=== PATIENT | female | born 1980 | race African-American/Black ===

== ENCOUNTER 2017-04-12 19:51 | Emergency (ER) | payer BC ==
--- NOTE | 2017-04-12 20:39 | ER Document Report ---
ED Blood Pressure Problem - General Chief Complaint: High Blood Pressure Stated Complaint: CLINIC REFERRED DUE TO BLOOD PRESSURE CONCERNS Time Seen by Provider: 04/12/17 20:38 Notes: 36-year-old female Afro-Honduran patient with history of hypertension but untreated. Followed by a monologist only. Went to an urgent care because she was having some spasms of her left eyelid. They did a blood pressure on her blood pressure was significantly elevated. Sent here. States that she has had increased shortness of breath with ambulation. Some orthopnea. Noticed increased swelling of her legs as well. TRAVEL OUTSIDE OF THE [place] IN LAST 30 DAYS: No - HPI Patient complains to provider of: High blood pressure Onset/Duration: Gradual - Related Data Allergies/Adverse Reactions: No Known Allergies Allergy (Verified 07/05/14 12:33) Past Medical History - General Information source: Patient - Social History Smoking Status: Never Smoker Frequency of alcohol use: None Drug Abuse: None Lives with: Alone Family History: Reviewed & Not Pertinent - Past Medical History Cardiac Medical History: Reports: Hx Hypertension Endocrine Medical History: Reports: Hx Diabetes Mellitus Type 2, Hx Hypothyroidism - Had her thyroid removed in May Psychiatric Medical History: Reports: Hx Depression Past Surgical History: Reports: Hx Section - x3, Hx Orthopedic Surgery , Hx Thyroid Surgery - thyroidectomy - Immunizations Hx Diphtheria, Pertussis, Tetanus Vaccination: Yes - unknown Review of Systems - Review of Systems Constitutional: No symptoms reported EENT: Other - Eyelids have been twitching Cardiovascular: Orthopnea, Dyspnea, Lightheaded, Edema Respiratory: Short of breath. denies: Cough, Hurts to breathe Gastrointestinal: No symptoms reported Genitourinary: No symptoms reported Female Genitourinary: No symptoms reported Musculoskeletal: No symptoms reported Skin: No symptoms reported Hematologic/Lymphatic: No symptoms reported Neurological/Psychological: No symptoms reported Physical Exam - Vital signs Vitals: Temp Pulse Resp BP Pulse Ox 98.4 F 82 20 156/108 H 99 04/12/17 20:12 04/12/17 20:12 04/12/17 20:12 04/12/17 20:12 04/12/17 20:12 Interpretation: Normal - General General appearance: Appears well, Alert Notes: Well-appearing, well-nourished, obese -Honduran female in no acute distress. - HEENT Head: Normocephalic, Atraumatic Eyes: Normal Pupils: PERRL Notes: No JVD - Respiratory Respiratory status: No respiratory distress Chest status: Nontender Breath sounds: Normal Chest palpation: Normal - Cardiovascular Rhythm: Regular Heart sounds: Normal auscultation Murmur: No - Abdominal Inspection: Normal Distension: No distension Bowel sounds: Normal Tenderness: Nontender Organomegaly: No organomegaly - Back Back: Normal, Nontender - Extremities General upper extremity: Normal inspection, Nontender, Normal color, Normal ROM , Normal temperature General lower extremity: Normal inspection, Nontender, Edema, Normal color, Normal ROM, Normal temperature, Normal weight bearing, Other - 2 Plus pitting edema noted bilateral lower extremities. No: Yanelis's sign - Neurological Neuro grossly intact: Yes Cognition: Normal Orientation: AAOx4 [place] Coma Scale Eye Opening: Spontaneous Bertrand Coma Scale Verbal: Oriented [place] Coma Scale Motor: Obeys Commands [place] Coma Scale Total: 15 Speech: Normal Motor strength normal: LUE, RUE, LLE, RLE Sensory: Normal - Psychological Associated symptoms: Normal affect, Normal mood - Skin Skin Temperature: Warm Skin Moisture: Dry Skin Color: Normal Course - Re-evaluation Re-evalutation: 04/12/17 20:52 Patient extremely hypertensive with some peripheral edema. Will get apprehensive workup at this time. 04/12/17 20:54 [employer] voice dictation system was used in the transcribing of this medical document. There may be contextual errors in the financial accounting analyst which are not actual representations of the patient's history of present illness, physical exam or medical treatment and decision making plans. 04/13/17 00:01 Labs are fairly unremarkable. Does have slightly elevated BNP. We will start her on some hypertensive medication. Will recommend close follow-up as an outpatient. Patient instructed to return immediately if she develops any worsening symptoms or concerns. 04/13/17 00:02 Laboratory 04/12/17 04/12/17 04/12/17 22:15 22:15 22:15 WBC 9.7 RBC 4.73 Hgb 13.4 Hct 39.4 MCV 83 MCH 28.3 MCHC 33.9 RDW 14.2 H Plt Count 244 Seg Neutrophils % 52.9 Lymphocytes % 34.1 Monocytes % 6.8 Eosinophils % 5.2 Basophils % 1.0 Absolute Neutrophils 5.1 Absolute Lymphocytes 3.3 Absolute Monocytes 0.7 Absolute Eosinophils 0.5 Absolute Basophils 0.1 Sodium 142.3 Potassium 4.2 Chloride 109 H Carbon Dioxide 22 Anion Gap 11 BUN 16 Creatinine 1.21 Est GFR ( Amer) > 60 Est GFR (Non-Af Amer) 50 L Glucose 82 Calcium 8.9 Total Bilirubin 0.3 Direct Bilirubin 0.2 Neonat Total Bilirubin Not Reportable Neonat Direct Bilirubin Not Reportable Neonat Indirect Bili Not Reportable AST 18 ALT 29 Alkaline Phosphatase 65 Troponin I < 0.012 NT-Pro-B Natriuret Pep 410 H Total Protein 6.2 L Albumin 3.7 Urine Color Urine Appearance Urine pH Ur Specific [place] Urine Protein Urine Glucose (UA) Urine Ketones Urine Blood Urine Nitrite Urine Bilirubin Urine Urobilinogen Ur Leukocyte Esterase Urine WBC (Auto) Urine RBC (Auto) Urine Bacteria (Auto) Squamous Epi Cells Auto Urine Mucus (Auto) Urine Ascorbic Acid 04/12/17 22:15 WBC RBC Hgb Hct MCV MCH MCHC RDW Plt Count Seg Neutrophils % Lymphocytes % Monocytes % Eosinophils % Basophils % Absolute Neutrophils Absolute Lymphocytes Absolute Monocytes Absolute Eosinophils Absolute Basophils Sodium Potassium Chloride Carbon Dioxide Anion Gap BUN Creatinine Est GFR ( Amer) Est GFR (Non-Af Amer) Glucose Calcium Total Bilirubin Direct Bilirubin Neonat Total Bilirubin Neonat Direct Bilirubin Neonat Indirect Bili AST ALT Alkaline Phosphatase Troponin I NT-Pro-B Natriuret Pep Total Protein Albumin Urine Color YELLOW Urine Appearance SLIGHTLY-CLOUDY Urine pH 6.0 Ur Specific [place] 1.014 Urine Protein NEGATIVE Urine Glucose (UA) NEGATIVE Urine Ketones NEGATIVE Urine Blood NEGATIVE Urine Nitrite NEGATIVE Urine Bilirubin NEGATIVE Urine Urobilinogen NEGATIVE Ur Leukocyte Esterase SMALL H Urine WBC (Auto) 3 Urine RBC (Auto) 1 Urine Bacteria (Auto) TRACE Squamous Epi Cells Auto 5 Urine Mucus (Auto) RARE Urine Ascorbic Acid NEGATIVE Chest X-Ray 04/12/17 20:48 IMPRESSION: NO SIGNIFICANT RADIOGRAPHIC FINDING IN THE CHEST. - Vital Signs Vital signs: Temp Pulse Resp BP Pulse Ox 98.4 F 82 25 H 166/107 H 96 04/12/17 20:12 04/12/17 20:12 04/12/17 23:00 04/12/17 21:02 04/12/17 23:00 - Laboratory Result Diagrams: 04/12/17 22:15 04/12/17 22:15 Laboratory results interpreted by me: 04/12/17 04/12/17 04/12/17 22:15 22:15 22:15 RDW 14.2 H Chloride 109 H Est GFR (Non-Af Amer) 50 L NT-Pro-B Natriuret Pep 410 H Total Protein 6.2 L Ur Leukocyte Esterase 04/12/17 22:15 RDW Chloride Est GFR (Non-Af Amer) NT-Pro-B Natriuret Pep Total Protein Ur Leukocyte Esterase SMALL H - EKG Interpretation by Oh EKG shows normal: Sinus rhythm, [place], Intervals, QRS Complexes, ST-T Waves Discharge - Discharge Clinical Impression: Hypertension Qualifiers: Hypertension type: unspecified Qualified Code(s): I10 - Essential (primary) hypertension Disposition: HOME, SELF-CARE Instructions: Hydrochlorothiazide ([facility]), High Blood Pressure, Requiring Treatment ([facility]) Prescriptions: Hydrochlorothiazide 25 mg PO DAILY 30 Days #30 tablet
--- NOTE | 2017-04-12 21:37 | RADIOLOGY REPORT (SQ) ---
EXAM DESCRIPTION: CHEST PA/LAT COMPLETED DATE/TIME: 04/12/2017 9:27 pm REASON FOR STUDY: sob COMPARISON: 05/17/2013 EXAM PARAMETERS: NUMBER OF VIEWS: two views TECHNIQUE: Digital Frontal and Lateral radiographic views of the chest acquired. RADIATION DOSE: NA LIMITATIONS: none FINDINGS: LUNGS AND PLEURA: No opacities, masses or pneumothorax. No pleural effusion. MEDIASTINUM AND HILAR STRUCTURES: No masses or contour abnormalities. HEART AND VASCULAR STRUCTURES: Heart normal size. No evidence for failure. BONES: No acute findings. HARDWARE: None in the chest. OTHER: No other significant finding. IMPRESSION: NO SIGNIFICANT RADIOGRAPHIC FINDING IN THE CHEST. TECHNICAL DOCUMENTATION: JOB ID: [id number] [employer]- All Rights Reserved
[2017-04-12 22:29] LABS: ABSOLUTE BASOPHILS # (AUTO) 0.1 10^3/uL (0.0-0.2); ABSOLUTE EOSINOPHILS # (AUTO) 0.5 10^3/uL (0.0-0.6); ABSOLUTE LYMPHOCYTES (AUTO) 3.3 10^3/uL (0.5-4.7); ABSOLUTE MONOCYTES (AUTO) 0.7 10^3/uL (0.1-1.4); ABSOLUTE NEUT (AUTO) 5.1 10^3/uL (1.7-8.2); EOSINOPHILS % (AUTO) 5.2 % (0-6); HEMATOCRIT 39.4 % (36.0-47.0); HEMOGLOBIN 13.4 g/dL (12.0-15.5); HGB HCT DIFFERENCE 0.8; LYMPHOCYTES % (AUTO) 34.1 % (13-45); MEAN CORPUSCULAR HEMOGLOBIN 28.3 pg (27.0-33.4); MEAN CORPUSCULAR HGB CONC 33.9 g/dL (32.0-36.0); MEAN CORPUSCULAR VOLUME 83 fl (80-97); MONOCYTES % (AUTO) 6.8 % (3-13); RED BLOOD COUNT 4.73 10^6/uL (3.72-5.28); RED CELL DISTRIBUTION WIDTH 14.2 % (11.5-14.0); SEGMENTED NEUTROPHILS % (AUTO) 52.9 % (42-78); WHITE BLOOD COUNT 9.7 10^3/uL (4.0-10.5)
[2017-04-12 22:32] LABS: APPEARANCE,URINE SLIGHTLY-CLOUDY; BILIRUBIN,URINE NEGATIVE (NEGATIVE); GLUCOSE, URINE NEGATIVE (NEGATIVE); KETONES,URINE NEGATIVE (NEGATIVE); LEUKOCYTE ESTERASE,URINE SMALL (NEGATIVE); NITRITE,URINE NEGATIVE (NEGATIVE); PROTEIN,URINE NEGATIVE (NEGATIVE); URINE SPECIFIC GRAVITY 1.014; UROBILINOGEN,URINE NEGATIVE mg/dL (<2.0)
[2017-04-12 22:46] LABS: ALANINE AMINOTRANSFERASE 29 U/L (9-52); ALBUMIN 3.7 g/dL (3.5-5.0); ALKALINE PHOSPHATASE 65 U/L (38-126); ANION GAP 11 (5-19); ASPARTATE AMINO TRANSFERASE 18 U/L (14-36); BILIRUBIN,DIRECT 0.2 mg/dL (0.0-0.4); BILIRUBIN,TOTAL 0.3 mg/dL (0.2-1.3); BLOOD UREA NITROGEN 16 mg/dL (7-20); CALCIUM 8.9 mg/dL (8.4-10.2); CARBON DIOXIDE 22 mmol/L (22-30); CHLORIDE 109 mmol/L (98-107); CREATININE RESULT 1.21 mg/dL (0.52-1.25); GLUCOSE 82 mg/dL (75-110); POTASSIUM 4.2 mmol/L (3.6-5.0); SODIUM 142.3 mmol/L (137-145); TOTAL PROTEIN 6.2 g/dL (6.3-8.2)
[2017-04-12 23:02] LABS: TROPONIN I < 0.012 ng/mL
[2017-04-13] MEDS ORDERED: HYDROCHLOROTHIAZIDE 25 MG TABLET PO ONE (00:05)
[2017-04-13 00:26] VITALS: BP 166/100
--- NOTE | 2017-04-14 06:01 | EKG REPORT ---
SEVERITY:- NORMAL ECG - SINUS RHYTHM : Confirmed by: Dariela Kaur MD 14-Apr-2017 06:00:34
== END 2017-04-13 00:24 | disposition home or self-care (01) ==
LOC: ER 19:51
DX: I10 Essential (primary) hypertension (principal); E11.9 Type 2 diabetes mellitus without complications; E03.9 Hypothyroidism, unspecified; R60.9 Edema, unspecified
CPT/HCPCS: 36415; 71020; 80053; 81001; 83880; 84484; 85025; 87086; 93005; 93010; 99284

== ENCOUNTER → 2017-05-13 | Outpatient (CLI) | payer BC ==
--- NOTE | 2017-05-13 18:14 | XCELERA REPORT ---
[address] [address] Transthoracic Echocardiogram Report Name: SUNIL CORONADO V Age: 36 yrs Gender: Female : 1980 Patient Status: Outpatient Patient Location: Study Date: 05/13/2017 09:59 AM Height: 71 in Weight: 335 lb BSA: 2.6 m2 Procedure: A complete two-dimensional transthoracic echocardiogram was performed (2D, M-mode, spectral and color flow Doppler). The study was technically difficult with many images being suboptimal in quality. Reason For Study: HEART FAILURE Ordering Physician: JOCELYNN MIRAMONTES Performed By: Nicole Terrell Interpretation Summary The left ventricular ejection fraction is normal. There is borderline concentric left ventricular hypertrophy. The left ventricle is grossly normal size. Doppler measurements suggest normal left ventricular diastolic function Wall motion cannot be accurately commented on, but no definite regional wall motion abnormalities noted. The right ventricular systolic function is normal. The left atrium is borderline dilated. The right atrium is borderline dilated. There is a trace amount of mitral regurgitation There is no mitral valve stenosis. There is a trace or physiologic amount of tricuspid regurgitation Tricuspid regurgitation jet envelope not well defined to measure RV systolic pressure accurately. There is no pericardial effusion. MMode/2D Measurements & Calculations RVDd: 3.0 cm LVIDd: 5.2 cm FS: 40.1 % Ao root diam: 2.7 cm IVSd: 0.99 cm LVIDs: 3.1 cm EDV(Teich): 128.0 ml LVPWd: 0.99 cm ESV(Teich): 37.8 ml Ao root area: 5.7 cm2 EF(Teich): 70.5 % Doppler Measurements & Calculations MV E max patricia: MV dec slope: Ao V2 max: LV V1 max P.3 cm/sec 114.6 cm/sec 2.4 mmHg MV A max patricia: 393.0 cm/sec2 Ao max PG: LV V1 max: 33.3 cm/sec MV dec time: 5.3 mmHg 77.8 cm/sec MV E/A: 2.4 0.20 sec PA V2 max: TR max patricia: 61.1 cm/sec 207.2 cm/sec PA max PG: TR max P.6 mmHg 1.5 mmHg Left Ventricle The left ventricle is grossly normal size. There is borderline concentric left ventricular hypertrophy. The left ventricular ejection fraction is normal. Doppler measurements suggest normal left ventricular diastolic function. Wall motion cannot be accurately commented on, but no definite regional wall motion abnormalities noted. Right Ventricle The right ventricle is mildly dilated. There is normal right ventricular wall thickness. The right ventricular systolic function is normal. Atria The right atrium is borderline dilated. The left atrium is borderline dilated. Interarterial septum not well visualized and not well dopplered. Cannot comment on ASD/PFO presence. Mitral Valve The mitral valve is grossly normal. There is no mitral valve stenosis. There is a trace amount of mitral regurgitation. Aortic Valve The aortic valve opens well. There is no aortic valve stenosis. No aortic regurgitation is present. Tricuspid Valve The tricuspid valve is not well visualized secondary to technical limitations. There is no tricuspid stenosis. There is a trace or physiologic amount of tricuspid regurgitation. Tricuspid regurgitation jet envelope not well defined to measure RV systolic pressure accurately. Pulmonic Valve The pulmonic valve is not well visualized. Great Vessels The aortic root is not well visualized but is probably normal size. The inferior vena cava was not visualized. Effusions There is no pericardial effusion. : JOCELYNN MIRAMONTES Shyamal
== END ==
LOC: SP 09:46
PROVIDERS: ATTEND Internal Medicine
DX: I50.21 Acute systolic (congestive) heart failure (principal); D39.0 Neoplasm of uncertain behavior of uterus
CPT/HCPCS: 93306

== ENCOUNTER 2017-12-29 03:43 | Emergency (ER) | payer BC ==
--- NOTE | 2017-12-29 04:46 | ER Document Report ---
HPI - HPI Pain Level: 5 Context: Patient is a 37-year-old female who comes emergency department for chief complaint of urinary frequency, painful urination, and blood in her urine over the past day. She denies flank pain, nausea or vomiting, fever or chills. She has a little bit of crampy pain in her lower mid abdomen with urinating. Past medical history of hypothyroidism, hypertension, and she states that at one point her kidney functioning was elevated but this was rechecked and normalized. - REPRODUCTIVE LMP: 12-17-17 Reproductive: DENIES: : Past Medical History - General Information source: Patient - Social History Smoking Status: Never Smoker Frequency of alcohol use: None Drug Abuse: None Lives with: Family Family History: Reviewed & Not Pertinent - Past Medical History Cardiac Medical History: Reports: Hx Hypertension Endocrine Medical History: Reports: Hx Hypothyroidism - Status post thyroidectomy Renal/ Medical History: Denies: Hx Peritoneal Dialysis Psychiatric Medical History: Reports: Hx Depression Past Surgical History: Reports: Hx Section - x3, Hx Orthopedic Surgery , Hx Thyroid Surgery - thyroidectomy - Immunizations Hx Diphtheria, Pertussis, Tetanus Vaccination: Yes - unknown Vertical Provider Document - CONSTITUTIONAL General Appearance: WD/WN, No Apparent Distress, Obese - INFECTION CONTROL TRAVEL OUTSIDE OF THE [place] IN LAST 30 DAYS: No - HEENT HEENT: Atraumatic, Normal ENT Exam, Normocephalic - NECK Neck: Normal Inspection - RESPIRATORY Respiratory: Breath Sounds Normal, No Respiratory Distress - CARDIOVASCULAR Cardiovascular: Regular Rate, Regular Rhythm - GI/ABDOMEN Gastrointestinal: Abdomen Soft. negative: Abdomen Non-Tender - There is mild suprapubic tenderness, remaining abdomen is soft and benign, no guarding, no distention, no rebound tenderness - BACK Back: Normal Inspection - No CVA tenderness bilaterally - MUSCULOSKELETAL/EXTREMETIES Musculoskeletal/Extremeties: MAEW, FROM, Non-Tender - NEURO Level of Consciousness: Awake, Alert, Appropriate - DERM Integumentary: Warm, Dry, No Rash Course - Re-evaluation Re-evalutation: Urine shows large amount of leukocyte esterase and white blood cells, shows hematuria. White blood cell clumps are present. Yeast are present. Some squamous epithelials but many more white blood cells. Patient has suprapubic tenderness and dysuria, urinary frequency. No CVA tenderness, no fever, no nausea or vomiting. Patient is very well-appearing. Suspect cystitis with potential developing pyelonephritis. Discussed with patient. Decision was made to proceed with treatment instead of performing additional workup, given Rocephin here, Diflucan here, patient will be given Keflex and Diflucan for home. Discussed follow-up and return precautions, patient states understanding and agreement. - Vital Signs Vital signs: Temp Pulse Resp BP Pulse Ox 98.2 F 79 18 167/90 H 100 12/29/17 04:05 12/29/17 04:05 12/29/17 04:05 12/29/17 04:05 12/29/17 04:05 Discharge - Discharge Clinical Impression: Dysuria Urinary tract infection Qualifiers: Urinary tract infection type: site unspecified Hematuria presence: with hematuria Qualified Code(s): N39.0 - Urinary tract infection, site not specified Condition: Stable Disposition: HOME, SELF-CARE Additional Instructions: Your evaluation is consistent with cystitis (a bladder infection). Take antibiotics as prescribed, after completion of antibiotics take the Diflucan to avoid yeast infection. Take Pyridium if needed for symptoms. Return if you worsen including increased pain, vomiting, fever of 100.4 or greater, or any other concerning or worsening symptoms. Prescriptions: Cephalexin Monohydrate [Keflex 500 mg Capsule] 500 mg PO QID #28 capsule Fluconazole [Diflucan] 150 mg PO ONCE PRN #1 tablet PRN Reason: Phenazopyridine HCl [Pyridium 100 Mg Tablet] 200 mg PO TID PRN #12 tablet PRN Reason: Referrals: JOCELYNN MIRAMONTES MD [Primary Care Provider] - Follow up as needed
[2017-12-29 04:51] LABS: APPEARANCE,URINE TURBID; BILIRUBIN,URINE NEGATIVE (NEGATIVE); COLOR,URINE YELLOW; GLUCOSE, URINE NEGATIVE (NEGATIVE); KETONES,URINE NEGATIVE (NEGATIVE); LEUKOCYTE ESTERASE,URINE LARGE (NEGATIVE); NITRITE,URINE NEGATIVE (NEGATIVE); PROTEIN,URINE >=500 mg/dL (NEGATIVE); URINE SPECIFIC GRAVITY 1.023
[2017-12-29] MEDS ORDERED: LIDOCAINE 1% INJ-PF (10 MG/ML) 30 ML SDV INJ ONE (04:54)
[2017-12-29] MEDS ORDERED: FLUCONAZOLE 100 MG TABLET PO ONE (04:54)
[2017-12-29] MEDS ORDERED: CEFTRIAXONE INJ 1000 MG VIAL IM ONE (04:54)
[2017-12-29] MEDS ORDERED: PHENAZOPYRIDINE HCL 200 MG TABLET PO ONE (05:00)
[2017-12-29 06:30] VITALS: BP 138/85
== END 2017-12-29 06:10 | disposition home or self-care (01) ==
LOC: ER 03:43
DX: N39.0 Urinary tract infection, site not specified (principal); R31.9 Hematuria, unspecified; I10 Essential (primary) hypertension
CPT/HCPCS: 99284; 96372; 87086; 81025; 81001; J3490 ×2; J0696

== ENCOUNTER 2018-02-23 08:21 | Emergency (ER) | payer BC ==
--- NOTE | 2018-02-23 09:06 | ER Document Report ---
HPI - HPI Pain Level: 3 Notes: Patient is a 37-year-old female who presents to the ED complaining of urinary burning, urgency, frequency, and small amount of blood that she noticed over the last day. Patient states that she did have a urinary infection about a month ago and was treated without any problems thereafter. She has been eating and drinking without any difficulties. She is having normal bowel movements. She has not had any vaginal discharge, odor, or bleeding. Denies drug allergies. Denies any headache, fever, URI, sore throat, chest pain, palpitations, syncope, cough, shortness of breath, wheeze, dyspnea, abdominal pain, nausea/vomiting/diarrhea, urinary retention, back pain, loss of control of bowel or bladder, numbness/tingling, muscle paralysis/weakness, or rash. - ROS Systems Reviewed and Negative: Yes All other systems reviewed and negative - REPRODUCTIVE Reproductive: DENIES: : Past Medical History - Social History Smoking Status: Never Smoker Family History: Reviewed & Not Pertinent - Past Medical History Cardiac Medical History: Reports: Hx Hypertension Endocrine Medical History: Reports: Hx Diabetes Mellitus Type 2, Hx Hypothyroidism - Status post thyroidectomy Renal/ Medical History: Denies: Hx Peritoneal Dialysis Psychiatric Medical History: Reports: Hx Depression Past Surgical History: Reports: Hx Section - x3, Hx Orthopedic Surgery , Hx Thyroid Surgery - thyroidectomy - Immunizations Hx Diphtheria, Pertussis, Tetanus Vaccination: Yes - unknown Vertical Provider Document - CONSTITUTIONAL Agree With Documented VS: Yes Notes: PHYSICAL EXAMINATION: GENERAL: Well-appearing, well-nourished and in no acute distress. LUNGS: Breath sounds clear to auscultation bilaterally and equal. No wheezes rales or rhonchi. HEART: Regular rate and rhythm without murmurs, rubs, gallops. ABDOMEN: Soft, nontender, nondistended abdomen. No guarding, no rebound. No masses appreciated. Normal bowel sounds present. No CVA tenderness bilaterally. Musculoskeletal: FROM to passive/active. Strength 5+/5. Extremities: No cyanosis, clubbing, or edema b/l. Peripheral pulses 2+. Capillary refill less than 3 seconds. NEUROLOGICAL: Normal speech, normal gait. PSYCH: Normal mood, normal affect. SKIN: Warm, Dry, normal turgor, no rashes or lesions noted. - INFECTION CONTROL TRAVEL OUTSIDE OF THE [place] IN LAST 30 DAYS: No Course - Re-evaluation Re-evalutation: 02/23/18 10:06 Patient is an afebrile, well-hydrated 37-year-old female who presents to the ED with an acute UTI/dysuria. Vitals are acceptable without any significant tachycardia, tachypnea, or hypoxia. PE is otherwise unremarkable. Patient's abdomen is soft and nontender. See urinalysis results. Urine culture is pending. HCG negative. Patient is nontoxic-appearing and is tolerating p.o. without difficulties. No further labs or imaging warranted at this time. Low suspicion/risk for acute appendicitis, bowel obstruction, acute cholecystitis, acute cholangitis, perforated diverticulitis, incarcerated hernia, pancreatitis , perforated ulcer, peritonitis, sepsis, pelvic inflammatory disease, ectopic , tubo-ovarian abscess, ovarian torsion, or other systemic emergent condition at this time. Patient is aware that her condition can change from initial presentation and she needs to monitor symptoms closely and seek medical attention if any acute changes. I will send her home with a prescription for Keflex. Conservative measures otherwise for symptoms. Recheck with your PCM in 3-5 days. Consider consult with a urologist. Return to the ED with any worsening/concerning symptoms otherwise as reviewed in discharge. Patient is in agreement. - Vital Signs Vital signs: Temp Pulse Resp BP Pulse Ox 98.8 F 88 18 127/70 H 98 02/23/18 08:27 02/23/18 08:27 10 08:27 02/23/18 08:27 10 08:27 Discharge - Discharge Clinical Impression: Acute UTI (urinary tract infection) Condition: Stable Disposition: HOME, SELF-CARE Instructions: Cephalexin ([facility]), Urinary Tract Infection ([facility]) Additional Instructions: Push fluids (i.e. water, cranberry juice) Proper hygenic technique Keep the skin clean Tylenol/ibuprofen as needed May use over the counter AZO for burning with urination x2-3 days Take medications as directed F/u with your PCM in 3-5 days for a recheck Consider consult with a Urologist for ongoing/worsening symptoms. Return to the ED with any worsening symptoms and/or development of fever, headache, chest pain, palpitations, syncope, shortness of breath, trouble breathing, abdominal pain, n/v/d, blood in stool/urine, loss of control of bowel /bladder, urinary retention, or other worsening symptoms that are concerning to you. Prescriptions: Cephalexin Monohydrate [Keflex 500 mg Capsule] 500 mg PO TID #21 capsule Forms: Elevated Blood Pressure Referrals: JOCELYNN MIRAMONTES MD [Primary Care Provider] - Follow up in 3-5 days [facility] [Provider Group] - Follow up as needed
[2018-02-23 09:47] LABS: APPEARANCE,URINE CLOUDY; BILIRUBIN,URINE NEGATIVE (NEGATIVE); GLUCOSE, URINE NEGATIVE (NEGATIVE); KETONES,URINE NEGATIVE (NEGATIVE); LEUKOCYTE ESTERASE,URINE LARGE (NEGATIVE); NITRITE,URINE POSITIVE (NEGATIVE); PROTEIN,URINE 30 mg/dL (NEGATIVE)
[2018-02-23 09:55] LABS: COLOR,URINE ORANGE
[2018-02-23 09:56] LABS: URINE SPECIFIC GRAVITY 1.016
[2018-02-23 10:30] VITALS: BP 136/92
== END 2018-02-23 10:30 | disposition home or self-care (01) ==
LOC: ER 08:21
DX: N39.0 Urinary tract infection, site not specified (principal); I10 Essential (primary) hypertension; E11.9 Type 2 diabetes mellitus without complications
CPT/HCPCS: 81001; 81025; 87086; 99283